=== PATIENT | male | born 1975 | race Caucasian/White ===

== ENCOUNTER 2016-08-06 09:50 | Inpatient (IN) | payer BC ==
[2016-08-06] MEDS ORDERED: HYDROCHLOROTHIA25 M1 PO (16:16)
[2016-08-06] MEDS ORDERED: BENTYL10 M1 PO (16:19)
[2016-08-06] MEDS ORDERED: COLACE100 M1 PO (16:20)
[2016-08-06] MEDS ORDERED: PROTONIX40 M2 PO (16:20)
[2016-08-06 20:25] LABS: INR 1.2 INR (0.9-1.1); PROTHROMBIN TIME 13.9 SECONDS (9.0-13.6)
[2016-08-07 05:49] LABS: BASO % 0.2 % (0-2); EOS % 0.4 % (0-7); HCT-HEMATOCRIT 41.3 % (36.0-53.5); HGB-HEMOGLOBIN 14.4 gm/dl (13.5-17.0); IMMATURE GRANULOCYTES ABSOLUTE 0.04 tho/cmm (0-0.03); IMMATURE GRANULOCYTES PERCENT 0.4 % (0-0.3); LYMPH % 17.3 % (20-45); LYMPH ABSOLUTE COUNT 1.6 tho/cmm (0.8-4.5); MCH (MEAN CORPUSCULAR HGB) 28.5 pg (28.0-32.0); MCHC MEAN CORPUSCULAR HGB CONC 34.9 % (32.0-36.0); MCV (MEAN CELL VOLUME) 81.6 fl (82.0-96.0); MEAN PLATELET VOLUME 9.3 cmc (9.4-12.4); MONO % 12.1 % (0-12); MONOCYTE ABSOLUTE COUNT 1.1 tho/cmm (0.0-1.2); NEUTROPHIL ABSOLUTE COUNT 6.4 tho/cmm (1.6-8.0); NEUTROPHIL-AUTOMATED 6.4 tho/cmm (1.6-8.0); NEUTROPHILS % 69.6 % (40-80); PLATELET COUNT 161 tho/cmm (150-450); RED BLOOD COUNT 5.06 mil/cmm (4.40-5.70); RED CELL DISTRIBUTION WIDTH 12.8 % (12.4-16.4); WHITE BLOOD COUNT 9.3 tho/cmm (4.0-10.0)
[2016-08-07 06:11] LABS: ANION GAP 7 mmol/L (0-20); BLOOD UREA NITROGEN 13 mg/dl (6-24); CALCIUM 8.2 mg/dl (8.5-10.5); CARBON DIOXIDE-VENOUS 34 mmol/L (22-32); CHLORIDE 100 mmol/l (96-110); CREATININE 1.15 mg/dl (0.60-1.30); GLUCOSE 129 mg/dL (70-110); MAGNESIUM 2.1 mg/dl (1.3-2.6); PHOSPHOROUS 2.2 mg/dl (2.5-4.9); POTASSIUM 3.4 mmol/L (3.7-5.1); SODIUM 138 mmol/L (135-145); eGFR VALUE FOR BLACK >90 mL/Min
[2016-08-08 04:49] LABS: BASO % 0.5 % (0-2); EOSINOPHIL ABSOLUTE COUNT 0.1 tho/cmm (0.0-0.7); HCT-HEMATOCRIT 39.9 % (36.0-53.5); HGB-HEMOGLOBIN 13.7 gm/dl (13.5-17.0); IMMATURE GRANULOCYTES ABSOLUTE 0.02 tho/cmm (0-0.03); IMMATURE GRANULOCYTES PERCENT 0.3 % (0-0.3); LYMPH % 25.5 % (20-45); LYMPH ABSOLUTE COUNT 1.5 tho/cmm (0.8-4.5); MCHC MEAN CORPUSCULAR HGB CONC 34.3 % (32.0-36.0); MCV (MEAN CELL VOLUME) 81.4 fl (82.0-96.0); MEAN PLATELET VOLUME 9.2 cmc (9.4-12.4); MONO % 12.5 % (0-12); MONOCYTE ABSOLUTE COUNT 0.7 tho/cmm (0.0-1.2); NEUTROPHIL ABSOLUTE COUNT 3.5 tho/cmm (1.6-8.0); NEUTROPHIL-AUTOMATED 3.5 tho/cmm (1.6-8.0); NEUTROPHILS % 60.2 % (40-80); PLATELET COUNT 167 tho/cmm (150-450); RED CELL DISTRIBUTION WIDTH 12.5 % (12.4-16.4); WHITE BLOOD COUNT 5.8 tho/cmm (4.0-10.0)
[2016-08-08 04:58] LABS: ANION GAP 7 mmol/L (0-20); BLOOD UREA NITROGEN 10 mg/dl (6-24); CALCIUM 8.6 mg/dl (8.5-10.5); CARBON DIOXIDE-VENOUS 32 mmol/L (22-32); CHLORIDE 103 mmol/l (96-110); CREATININE 1.06 mg/dl (0.60-1.30); GLUCOSE 94 mg/dL (70-110); MAGNESIUM 2.2 mg/dl (1.3-2.6); PHOSPHOROUS 2.9 mg/dl (2.5-4.9); POTASSIUM 3.7 mmol/L (3.7-5.1); SODIUM 138 mmol/L (135-145); eGFR VALUE FOR BLACK >90 mL/Min
[2016-08-08] MEDS ORDERED: COREG6.25 M1 PO (14:13)
[2016-08-08] MEDS ORDERED: XARELTO STARTER PACK (14:15)
[2016-08-08] MEDS ORDERED: NORCO 5-325 TA1 EACH PO (14:33)
--- NOTE | 2016-08-08 16:21 | NUR ---
VIRTUAL CARE NOTE: PT STATES DOING GOOD, READY FOR DISCHARGE INSTRUCTIONS. INFORMATION GIVEN TO PT, PT DENIES QUESTIONS OR CONCENRS. INFORMED FLOOR NURSE DISCHARGE TEACHING COMPLETE.
== END 2016-08-08 16:35 | DRG 698 ==
LOC: CTSCAN 09:50 → 5WD 15:53
PROVIDERS: Family Medicine; Internal Medicine; Nurse Practitioner; ADMIT Hospitalist
DX: N28.0 Ischemia and infarction of kidney (principal); I77.79 Dissection of other specified artery; I10 Essential (primary) hypertension; K21.9 Gastro-esophageal reflux disease without esophagitis; D72.829 Elevated white blood cell count, unspecified; Z87.891 Personal history of nicotine dependence; Z86.718 Personal history of other venous thrombosis and embolism
CPT/HCPCS: J1650; J2270; Q9967